=== PATIENT | female | born 1970 | race African-American/Black ===

== ENCOUNTER 2024-08-16 09:51 | Day surgery (SDC) | payer OTHER ==
[2024-08-14 07:55] VITALS: BP 143/94
[2024-08-14 08:03] LABS: HEMATOCRIT 33.3 % (36.0-45.00); HEMOGLOBIN 10.3 g/dL (12.0-15.00); MEAN CELL VOLUME 76.7 fL (80.00-100.00); MEAN CORPUSCULAR HEMOGLOBIN 23.8 pg (27.00-32.0); PLATELET COUNT 351 K/uL (150-450); RED BLOOD COUNT 4.34 M/uL (4.00-6.00); RED CELL DISTRIBUTION WIDTH 18.9 % (11.5-14.5)
[2024-08-14 08:17] LABS: INR 0.98; PARTIAL THROMBOPLASTIN TIME 26.5 SECONDS (22.0-34.0); PROTHROMBIN TIME 10.7 SECONDS (9.0-11.5); URINE APPEARANCE Clear; URINE BILIRRUBIN Negative (NEGATIVE); URINE BLOOD Negative; URINE COLOR Yellow; URINE GLUCOSE Negative (NEGATIVE); URINE KETONE Negative (NEGATIVE); URINE LEUKOCYTE Negative; URINE NITRATE Negative; URINE PROTEIN Negative (NEGATIVE); URINE UROBILINOGEN 0.2 E.U./dl
[2024-08-14 08:18] LABS: URINE BACTERIA 70.9 uL (0.0-1933); URINE EPITHELIAL CELLS 3.4 uL (0.0-38.8); URINE RBC 4.4 uL (0.0-20.8); URINE WBC 2.6 uL (0.0-23.2)
[2024-08-14 08:53] LABS: URINE CAST 0.29 uL (0.0-1.40)
[2024-08-14 08:59] LABS: ALBUMIN 3.9 gm/dL (3.4-5.0); BILIRUBIN TOTAL 0.19 mg/dL (0.3-1.2); CALCIUM 9.6 mg/dL (8.5-10.1); CREATININE SERUM 0.79 mg/dL (0.55-1.02); GFR 76.42; GLOBULINA 3.6 G/DL (2.4-3.5); POTASSIUM 4.6 mEq/L (3.5-5.1); TOTAL PROTEIN 7.5 gm/dL (6.4-8.2)
[~2024-08-16] VITALS: Ht 160 cm; Wt 86.2 kg
[~2024-08-16 09:51] MED LIST: CARVEDILOL6.25 MG; COZAAR100 MG PO; GRALISE300 MG PO; HYDROCHLOROTHIA25 MG PO; NORVASC10 MG PO; PAXIL40 MG PO; TRAMADOL HCL50 MG PO
[2024-08-16] MEDS ORDERED: MORPHINE SULFATE 4 MG/ML VIAL IV PRN (14:45)
== END 2024-08-16 19:15 | disposition home or self-care (01) ==
LOC: CIR.AMB 09:51
PROVIDERS: ATTEND Obstetrics & Gynecology
DX: D25.0 Submucous leiomyoma of uterus (principal); N93.8 Other specified abnormal uterine and vaginal bleeding; I10 Essential (primary) hypertension; Z88.6 Allergy status to analgesic agent